=== PATIENT | female | born 1995 | race Caucasian/White ===

== ENCOUNTER 2020-12-08 14:53 | Emergency (ER) | payer OTHER ==
[~2020-12-08] VITALS: Ht 170.2 cm; Wt 59.0 kg
[2020-12-08] MEDS ORDERED: FLUO10 PO (15:45)
[2020-12-08] MEDS ORDERED: AMPDEX10CR PO (15:46)
== END 2020-12-08 15:38 | disposition home or self-care (01) ==
LOC: ER 14:53
DX: S01.412A Laceration without foreign body of left cheek and temporomandibular area, initial encounter (principal); F17.210 Nicotine dependence, cigarettes, uncomplicated; W22.8XXA Striking against or struck by other objects, initial encounter
CPT/HCPCS: 12011; 99282-25; A9270